=== PATIENT | female | born 1955 | race Caucasian/White ===

== ENCOUNTER → 2017-03-18 | Outpatient (CLI) | payer OTHER ==
[~2017-03-18] MED LIST: ANTIVERT25 MG PO; CELEBREX200 MG PO; HYDROCODON-ACE1 EAC7 PO; PRILOSEC20 MG PO; SYNTHROID150 MCG PO; TRAMADOL HCL50 MG PO; TYLENOL WITH C1 EACH PO; VITAMIN B12 100MCG PO; WOMEN'S DAILY1 EAC1 PO
== END | disposition home or self-care (01) ==
DX: M17.11 Unilateral primary osteoarthritis, right knee (principal); R26.2 Difficulty in walking, not elsewhere classified; M25.561 Pain in right knee; M25.661 Stiffness of right knee, not elsewhere classified; M62.81 Muscle weakness (generalized)
CPT/HCPCS: 97110 GP; 97150 GO; 97161 GP; 97165 GO

== ENCOUNTER 2017-03-30 20:54 | Inpatient (IN) | payer OTHER ==
[~2017-03-30] VITALS: Ht 165.1 cm; Wt 112.5 kg
[~2017-03-30 20:54] MED LIST changes: +DETROL2 MG PO; +INDERAL80 MG PO; +PROZAC10 MG PO; +SYNTHROID125 MCG PO; -SYNTHROID150 MCG PO; +VITAMIN B-12250 MCG PO; -VITAMIN B12 100MCG PO
[2017-03-31 06:10] VITALS: BP 147/83
[2017-03-31 10:24] LABS: HEMATOCRIT 35.8 % (36.0-46.0); MCH 30.5 PG (29.0-34.0); MCHC 33.5 G/DL (30.0-36.0); MCV 91.1 FL (83-99); MEAN PLAT.VOLUME 9.5 uM^3 (9.5-12.4); PLATELET COUNT 151 K/uL (156-360); RBC DIS.WIDTH-SD 40.4 % (39-53); RED BLOOD COUNT 3.93 M/uL (3.80-5.20); WHITE BLOOD COUNT 4.9 K/uL (4.1-10.2)
[2017-03-31 11:15] VITALS: BP 145/65
[2017-03-31 15:33] VITALS: BP 130/66
[2017-03-31 20:17] VITALS: BP 134/72
[2017-03-31 23:53] VITALS: BP 150/71
[2017-04-01 03:44] VITALS: BP 139/63
[2017-04-01 07:54] VITALS: BP 137/63
[2017-04-01 11:04] LABS: HEMATOCRIT 36.7 % (36.0-46.0); MCV 91.5 FL (83-99)
[2017-04-01 11:26] LABS: ANION GAP 6 MEQ/L (2-14); CHLORIDE 102 MEQ/L (99-109); GFR ESTIMATE (CALCULATED) > 59 mL/min/; GLUCOSE 115 mg/dL (70-99); POTASSIUM 4.4 MEQ/L (3.7-5.4); SAMPLE HEMOLYSIS CHECK 0; SAMPLE ICTERIC CHECK 0; SAMPLE LIPEMIA CHECK 0; UREA NITROGEN (BUN) 15 mg/dL (9-23)
[2017-04-01 11:27] LABS: SODIUM 137 MEQ/L (136-147)
[2017-04-01 11:58] VITALS: BP 142/66
[2017-04-01 16:03] VITALS: BP 144/64
[2017-04-01 20:04] VITALS: BP 129/63
[2017-04-01 23:32] VITALS: BP 102/61
[2017-04-02 03:46] VITALS: BP 94/53
[2017-04-02 05:50] LABS: HEMATOCRIT 32.8 % (36.0-46.0); MCV 91.4 FL (83-99)
[2017-04-02 07:33] VITALS: BP 117/56
[2017-04-02] MEDS ORDERED: ENDOCET 5-3251 EACH PO (08:41)
[2017-04-02] MEDS ORDERED: LOVENOX40 MG/0.4 SC (08:41)
[2017-04-02 11:40] VITALS: BP 121/58
== END 2017-04-02 13:52 | DRG 470 ==
LOC: ENRESERV 20:54 → 3WEST 03-31 05:31 → 2SOUTH 03-31 05:31 → 3WEST 03-31 10:59 → 2SOUTH 03-31 14:02 → 3WEST 04-02 13:52
PROVIDERS: Orthopaedic Surgery
PROC: 0SRC0J9 Replacement of Right Knee Joint with Synthetic Substitute, Cemented, Open Approach (ICD-10-PCS; principal; 2017-03-31)
DX: M17.11 Unilateral primary osteoarthritis, right knee (principal); Z68.41 Body mass index [BMI] 40.0-44.9, adult; J32.9 Chronic sinusitis, unspecified; Z87.891 Personal history of nicotine dependence; Z82.49 Family history of ischemic heart disease and other diseases of the circulatory system; Z80.41 Family history of malignant neoplasm of ovary
CPT/HCPCS: 73560; 80048; 85014; 85018; 85027; C1713; J0131; J0690; J1170; J1650; J2250; J7050; Q0175